=== PATIENT | female | born 1990 | race Caucasian/White ===

== ENCOUNTER 2016-09-13 21:26 | Emergency (ER) | payer OTHER ==
--- NOTE | ~2016-09-13 | CR63 ---
[facility] A Service of [facility] & [facility] RADIOLOGY TEXT RESULTS PATIENT: OZIEL BORJAS LOCATION: CFTX : 89 UNIT #: [id number] AGE: [address]: PAKO FRANKLIN APRN SEX: F ORDER DR: [id number] [facility] [address] [place], [place] [address] [id number] MR#: [id number] Acc #: [id number] NAME: OZIEL BORJAS : 1990 SEX: F STUDY DATE/TIME: 09/13/2016 21:53 UNIT: [facility] ROOM: STUDY DESCRIPTION: CR Chest 2 View Attending Physician: Pako Franklin Aprn Ordering Physician: Elvia Traylor P.A.-C. Primary Care Physician: Angelic Davidson M.D. MEDICAL IMAGING REPORT This report is preliminary unless electronic signature is present EXAM Chest x-ray, 09/13/2016 HISTORY 26-year-old female in the ED complaining of shortness of air, cough and chest heaviness beginning last evening. TECHNIQUE AP and lateral upright chest series. FINDINGS The examination is negative. Heart size and pulmonary vascularity are within normal limits. The lungs appear clear. No visible pulmonary infiltrate or pleural effusion. IMPRESSION Negative chest. Dictated by... Braydon Looney M.D. THIS IS AN ELECTRONICALLY VERIFIED REPORT Braydon Looney M.D. at 09/14/2016 6:00 AM Monty TD: 09/14/2016 02:40 JOB #: [id number] MEDICAL IMAGING REPORT Page 1 of 1 COPY
--- NOTE | ~2016-09-13 | EKG ---
PATIENT: OZIEL BORJAS UNIT #: [id number] Ventricular Rate: 100 BPM Atrial Rate: 100 BPM P-R Interval: 138 ms QRS Duration: 90 ms Q-T Interval: 372 ms QTC Calculation(Bezet): 479 ms P Franklin: 44 degrees Calculated R Franklin: 92 degrees Calculated T Franklin: 19 degrees Diagnosis Line: Normal sinus rhythm Diagnosis Line: Rightward axis Diagnosis Line: Borderline ECG Diagnosis Line: No previous ECGs available Diagnosis Line: Confirmed by DIEGO MERAZ MD ([id number]) on 09/13/2016 Diagnosis Line: 10:39:48 PM INTERPRETING MD: MARIYA PRABHAKAR
[2016-09-13 21:18] LABS: POC - CKMB <1.0 ng/mL (0.0-7.9); POC - TROPONIN <0.05 ng/mL (<=0.05)
[~2016-09-13 21:26] MED LIST: AMOX TR-K CLV 81 TA1 PO; ANTIVERT PO; BENTYL20 M1 PO; BIRTHCONTROL; CELEXA PO; FLAGYL250 MG PO; GABAPENTIN800 MG PO; HYDROCODON-ACE1 EAC7 PO; KEFLEX500 MG PO; KETOPROFEN PO; LORATADINE-D 11 EACH PO; NEURONTIN PO; PHENERGAN25 M1 PO; ROBAXIN PO; TOPAMAX PO; TYLENOL #3 PO; VICODIN 5/500 T1 TAB PO; WELLBUTRIN75 M1 PO
[2016-09-13 21:47] LABS: INFLUENZA A NEG (NEG); INFLUENZA B NEG (NEG)
== END 2016-09-14 00:07 | disposition home or self-care (01) ==
LOC: CFTX 21:26
PROVIDERS: Physician Assistant
DX: R07.9 Chest pain, unspecified (principal); R06.2 Wheezing; J06.9 Acute upper respiratory infection, unspecified; F98.8 Other specified behavioral and emotional disorders with onset usually occurring in childhood and adolescence; F41.9 Anxiety disorder, unspecified; F31.9 Bipolar disorder, unspecified
CPT/HCPCS: 36415; 71020; 82553; 84484; 85379; 87804; 93005; 94640; 99283